=== PATIENT | female | born 1945 | race Caucasian/White ===

== ENCOUNTER → 2020-07-15 | Outpatient (CLI) | payer OTHER ==
[~2020-07-15] VITALS: Ht 167.6 cm; Wt 86.2 kg
[~2020-07-15] MED LIST: ALEVE220 M1 PO; NEURONTIN 300M300 M2 PO
--- NOTE | 2020-07-18 11:11 | P ---
[facility] [place] [address] PROCEDURE REPORT Name: TED HUSTON Room #: REG [facility]#: [id number] Admission: 07/15/20 Attend Phys: Francisco Funes Discharge: Date of : 47 Report #: [id number] THIS REPORT FOR: cc: ALVIN COONEY MD, STACY C. MD McElhinney, Christian C. MD ~ DOC #: [id number] cc: Alvin Shi MD DATE OF SERVICE: 07/15/2020 PROCEDURE PERFORMED: Colonoscopy. HISTORY OF PRESENT ILLNESS: The patient is a 75-year-old female with past medical history of colon polyps approximately 9-10 years ago. She denies any symptoms other than possible hemorrhoids. Denies any blood in her stools. She does have a family history of colon cancer in her son, diagnosed at age 50. DESCRIPTION OF PROCEDURE: The risks and benefits of the procedure were explained to the patient, those risks including but not limited to bleeding, perforation and the risk of sedation. She understood these risks and gave informed consent. Sedation was given using propofol per anesthesia. Next, a digital rectal exam was initially performed, which showed a small external hemorrhoid, otherwise normal. Next, using a standard Olympus colonoscope, the scope was placed in the patient's anus and advanced under direct vision to the cecum. The overall prep was good. The cecum and ileocecal valve were normal in appearance. The ascending, transverse, descending, and sigmoid colon were normal. The rectal mucosa was normal. On retroflexion, small nonbleeding internal hemorrhoids were noted. The scope was then withdrawn and the procedure terminated. The patient tolerated the procedure well. IMPRESSION: 1. Small internal hemorrhoids. 2. Small external hemorrhoid. 3. Otherwise, normal colonoscopy. RECOMMENDATIONS: Would repeat colonoscopy in 5 years due to family history. Thank you for allowing me to participate in her care. Francisco Shi MD [facility] [address] [address] PROCEDURE REPORT Name: VERONICATED BIRCH Room #: REG [facility]#: [id number] Admission: 07/15/20 Attend Phys: Francisco Funes Discharge: Date of : 47 Report #: [id number] <ELECTRONICALLY SIGNED> By: Francisco Shi MD 07/18/20 [id number] Francisco Shi MD /nt
== END | disposition home or self-care (01) ==
LOC: EDBD → GI 09:04
PROVIDERS: ATTEND Specialist
DX: Z12.11 Encounter for screening for malignant neoplasm of colon (principal); Z86.010 Personal history of colon polyps; Z80.0 Family history of malignant neoplasm of digestive organs; K64.8 Other hemorrhoids; K64.4 Residual hemorrhoidal skin tags; Z98.890 Other specified postprocedural states; Z79.899 Other long term (current) drug therapy; Z87.891 Personal history of nicotine dependence; Z91.040 Latex allergy status; Z90.710 Acquired absence of both cervix and uterus
CPT/HCPCS: 62110; 62900